=== PATIENT | female | born 1990 | race Caucasian/White ===

== ENCOUNTER 2017-10-04 12:41 | Outpatient (CLI) | payer OTHER | END 2017-10-04 12:48 | disposition home or self-care (01) | LOC: LAB 12:41 | DX: R10.30 Lower abdominal pain, unspecified (principal) ==

== ENCOUNTER 2017-10-10 08:19 | Outpatient (CLI) | payer OTHER | END 2017-10-10 08:27 | disposition home or self-care (01) | LOC: TOM 08:19 | DX: R10.30 Lower abdominal pain, unspecified (principal) ==

== ENCOUNTER 2022-06-24 09:40 | Inpatient (IN) | payer OTHER ==
[~2022-06-24] VITALS: Ht 152.4 cm; Wt 68.5 kg
[2022-06-24] MEDS ORDERED: PEPCID AC20 MG PO (13:25)
== END 2022-06-26 12:55 | disposition home or self-care (01) | DRG 807 ==
LOC: LDR 09:40 → OB/GYN 09:40 → LDR 06-29 14:50
PROVIDERS: ADMIT Obstetrics & Gynecology; ATTEND Obstetrics & Gynecology
PROC: 10E0XZZ Delivery of Products of Conception, External Approach (ICD-10-PCS; principal; 2022-06-24)
PROC: 0KQM0ZZ Repair Perineum Muscle, Open Approach (ICD-10-PCS; 2022-06-24)
PROC: 4A1HXCZ Monitoring of Products of Conception, Cardiac Rate, External Approach (ICD-10-PCS; 2022-06-24)
DX: O70.1 Second degree perineal laceration during delivery (principal); Z37.0 Single live birth; Z3A.39 39 weeks gestation of pregnancy; Z20.822 Contact with and (suspected) exposure to COVID-19